=== PATIENT | male | born 1995 | race Caucasian/White ===

== ENCOUNTER → 2021-04-03 | Outpatient (CLI) | payer OTHER ==
--- NOTE | 2021-04-03 09:37 | US ---
EXAMINATION TYPE: US abdomen limited DATE OF EXAM: 04/03/2021 COMPARISON: NONE CLINICAL HISTORY: ICD-10: R10.12: Left upper quadrant pain. LUQ pain x 2 years per patient. EXAM MEASUREMENTS: Spleen: 11.1 cm Left Kidney: 11.7 x 6.2 x 6.1 cm Limited exam due to patient body habitus. 1. Spleen: Appears slightly heterogeneous. 2. Left Kidney: Hyperechoic area seen: 0.6 x 0.6 x 0.3 cm - possible vessel. Nonobstructing renal s tone can be considered. No hydronephrosis or masses seen at this time. IMPRESSION: 1. Limited left upper quadrant ultrasound unremarkable. Nonobstructing renal stone or vessel may be p resent.
== END | disposition home or self-care (01) ==
LOC: RADUSWWP 07:02
PROVIDERS: ATTEND Internal Medicine Gastroenterology
DX: N20.0 Calculus of kidney (principal)
CPT/HCPCS: 76705

== ENCOUNTER 2021-09-24 10:48 | Emergency (ER) | payer OTHER ==
[2021-09-24 11:07] VITALS: RESP 18
[2021-09-24] MEDS ORDERED: PANTOPRAZOLE 40 MG/10 ML VIAL IVP STA (11:14)
[2021-09-24] MEDS ORDERED: ONDANSETRON 4 MG/2 ML VIAL IVP STA (11:14)
[2021-09-24] MEDS ORDERED: SODIUM CHLORIDE 0.9% 1,000 ML IV STA (11:14)
--- NOTE | 2021-09-24 11:17 | ED ---
General Adult HPI - General Chief complaint: Abdominal Pain Stated complaint: nausea, vomiting Time Seen by Provider: 09/24/21 11:02 Source: patient, EMS, RN notes reviewed Mode of arrival: EMS Limitations: no limitations - History of Present Illness Initial comments: Patient is a pleasant 18-year-old male presenting to the emergency department with anxiety and vomiting. Patient was taken off his Klonopin 2 weeks ago. Patient has started drinking heavily since that time. Patient has had some vomiting. Patient has some epigastric discomfort. Patient has anxiety. patient denies any alcohol today. - Related Data Home Medications Medication Instructions Recorded Confirmed Atorvastatin [Lipitor] 10 mg PO DAILY 09/24/21 09/24/21 lisinopriL [Zestril] 5 mg PO DAILY 09/24/21 09/24/21 Allergies Allergy/AdvReac Type Severity Reaction Status Date / Time No Known Allergies Allergy Verified 09/24/21 11:36 Review of Systems ROS Statement: Those systems with pertinent positive or pertinent negative responses have been documented in the HPI. ROS Other: All systems not noted in ROS Statement are negative. Constitutional: Denies: fever Eyes: Denies: eye pain ENT: Denies: ear pain Respiratory: Denies: cough Cardiovascular: Denies: chest pain Endocrine: Reports: fatigue Gastrointestinal: Reports: as per HPI Genitourinary: Denies: dysuria Musculoskeletal: Denies: back pain Skin: Denies: rash Neurological: Denies: weakness Psychiatric: Reports: anxiety Past Medical History Past Medical History: Hyperlipidemia, Hypertension, Liver Disease History of Any Multi-Drug Resistant Organisms: None Reported Past Surgical History: No Surgical Hx Reported Past Psychological History: No Psychological Hx Reported Smoking Status: Current every day smoker Past Alcohol Use History: Daily Past Drug Use History: Marijuana General Exam Limitations: no limitations General appearance: alert, other (Odor of ketones on the breath) Head exam: Present: normocephalic Eye exam: Present: normal appearance Neck exam: Present: normal inspection Respiratory exam: Present: normal lung sounds bilaterally Cardiovascular Exam: Present: regular rate, normal rhythm Expanded Peripheral pulses: 2+: Posterior Tibialis (R), Posterior Tibialis (L) GI/Abdominal exam: Present: soft, tenderness (Minimal epigastric tenderness) Extremities exam: Present: normal inspection Neurological exam: Present: alert Psychiatric exam: Present: anxious Skin exam: Present: normal color Course Vital Signs 09/24/21 09/24/21 09/24/21 10:52 12:02 13:57 Temperature 98.0 F Pulse Rate 93 86 95 Respiratory 18 18 18 Rate Blood Pressure 155/103 105/80 142/102 O2 Sat by Pulse 97 97 96 Oximetry Medical Decision Making - Medical Decision Making Patient reevaluated and feeling much better following Ativan and GI cocktail. Patient and family updated on results and need for follow-up. - Lab Data Result diagrams: 09/24/21 12:01 09/24/21 12:01 Lab Results 09/24/21 09/24/21 Range/Units 12:01 12:01 WBC 5.1 (3.8-10.6) k/uL RBC 5.00 (4.30-5.90) m/uL Hgb 15.8 (13.0-17.5) gm/dL Hct 46.5 (39.0-53.0) % MCV 93.0 (80.0-100.0) fL MCH 31.6 (25.0-35.0) pg MCHC 33.9 (31.0-37.0) g/dL RDW 13.3 (11.5-15.5) % Plt Count 318 (150-450) k/uL MPV 6.6 Neutrophils % 69 % Lymphocytes % 21 % Monocytes % 6 % Eosinophils % 1 % Basophils % 1 % Neutrophils # 3.5 (1.3-7.7) k/uL Lymphocytes # 1.1 (1.0-4.8) k/uL Monocytes # 0.3 (0-1.0) k/uL Eosinophils # 0.1 (0-0.7) k/uL Basophils # 0.0 (0-0.2) k/uL Sodium 137 (137-145) mmol/L Potassium 4.2 (3.5-5.1) mmol/L Chloride 99 (98-107) mmol/L Carbon Dioxide 24 (22-30) mmol/L Anion Gap 14 mmol/L BUN 21 H (9-20) mg/dL Creatinine 0.84 (0.66-1.25) mg/dL Est GFR (CKD-EPI)AfAm >90 (>60 ml/min/1.73 sqM) Est GFR (CKD-EPI)NonAf >90 (>60 ml/min/1.73 sqM) Glucose 130 H (74-99) mg/dL Calcium 8.4 (8.4-10.2) mg/dL Total Bilirubin 0.8 (0.2-1.3) mg/dL AST 52 (17-59) U/L ALT 73 H (4-49) U/L Alkaline Phosphatase 56 (38-126) U/L Total Protein 7.3 (6.3-8.2) g/dL Albumin 4.3 (3.5-5.0) g/dL Amylase 50 (30-110) U/L Lipase 43 (23-300) U/L Serum Alcohol 96 mg/dL - Radiology Data Radiology results: report reviewed (Computed tomography scan abdomen pelvis shows no definite acute abnormality. Enlarged liver.), image reviewed (KB shows prominent small bowel loops that could represent ileus or enteritis. phebolith, possible renal calculi.) Disposition Clinical Impression: Abdominal pain, Alcohol intoxication, Anxiety Disposition: HOME SELF-CARE Condition: Stable Instructions (If sedation given, give patient instructions): Abdominal Pain (ED), Abuse of Alcohol (DC), Generalized Anxiety Disorder (ED) Additional Instructions: Please follow-up with primary care physician in the next day or 2 for recheck. Additional numbers have been provided. Return for increased pain, vomiting, fevers, worsening or changing symptoms or other concerns. Prescription has been sent to pharmacy. Is patient prescribed a controlled substance at d/c from ED?: No Referrals: Claudette Amaro MD [Primary Care Provider] - 1-2 days Pastor Wall MD [STAFF PHYSICIAN] - 1-2 days Brenton Stone MD [REFERRING] - 1-2 days Time of Disposition: 14:23
[2021-09-24 12:12] LABS: Basophils % (A) 1 %; Eosinophils # (A) 0.1 k/uL (0-0.7); Eosinophils % (A) 1 %; HCT 46.5 % (39.0-53.0); HGB 15.8 gm/dL (13.0-17.5); Lymphocytes # (A) 1.1 k/uL (1.0-4.8); Lymphocytes % (A) 21 %; MCH 31.6 pg (25.0-35.0); MCHC 33.9 g/dL (31.0-37.0); Mean Platelet Volume 6.6; Monocytes # (A) 0.3 k/uL (0-1.0); Monocytes % (A) 6 %; Neutrophils # (A) 3.5 k/uL (1.3-7.7); Neutrophils % (A) 69 %; Platelet Count 318 k/uL (150-450); RDW 13.3 % (11.5-15.5); WBC 5.1 k/uL (3.8-10.6)
[2021-09-24 12:26] LABS: ALT 73 U/L (4-49); African American GFR (CKD) >90 (>60 ml/min/1.73 sqM); Albumin 4.3 g/dL (3.5-5.0); Amylase 50 U/L (30-110); Anion Gap 14 mmol/L; Blood Urea Nitrogen 21 mg/dL (9-20); Calcium 8.4 mg/dL (8.4-10.2); Carbon Dioxide 24 mmol/L (22-30); Chloride 99 mmol/L (98-107); Glucose 130 mg/dL (74-99); Lipase 43 U/L (23-300); Non-African American GFR(CKD) >90 (>60 ml/min/1.73 sqM); Sodium 137 mmol/L (137-145); Total Bilirubin 0.8 mg/dL (0.2-1.3); Total Protein 7.3 g/dL (6.3-8.2)
[2021-09-24 12:27] LABS: AST 52 U/L (17-59); Alcohol 96 mg/dL; Alkaline Phosphatase 56 U/L (38-126); Potassium 4.2 mmol/L (3.5-5.1)
--- NOTE | 2021-09-24 12:39 | XR ---
EXAMINATION TYPE: XR KUB DATE OF EXAM: 09/24/2021 Comparison: None Clinical History: 26-year-old male nausea and abdominal pain Findings: Lung bases are clear. No evidence for free intraperitoneal air. Prominent small bowel loops in the left side of the abdomen, some of which are borderline distended u p to 3.1 cm. No air-fluid levels. Only minimal scattered colonic air. No significant stool burden see n. Rounded calcifications in the pelvis suggesting phleboliths. 5 mm subtle density right mid abdomen. Impression: 1. Some prominent small bowel loops along the left side of the abdomen measuring up to 3.1 cm colloid represent ileus or enteritis. No air-fluid levels to suggest bowel obstruction. No free air. No sign ificant stool burden. 2. Rounded calcifications in the pelvis likely phleboliths. Possible 5 mm right renal calculus.
[2021-09-24] MEDS ORDERED: LORazepam 2 MG/ML INJ IV STA (13:01)
[2021-09-24] MEDS ORDERED: MAG HYDROX/AL HYDROX/SIMETH 30 ML, HYOSCYAMINE ELIXIR 10 ML, LIDOCAINE VISCOUS 2% 10 ML PO STA ×3 (13:01)
--- NOTE | 2021-09-24 14:01 | CT ---
EXAMINATION TYPE: CT abdomen pelvis w con DATE OF EXAM: 09/24/2021 COMPARISON: X-ray dated 09/24/2021 HISTORY: Epigastric pain CT DLP: 3240 mGycm Automated exposure control for dose reduction was used. TECHNIQUE: Helical acquisition of images was performed from the lung bases through the pelvis. CONTRAST: Performed without Oral Contrast and with IV Contrast, patient injected with 100 mL of Isovue 300. FINDINGS: LUNG BASES: No significant abnormality is appreciated. LIVER/GB: Enlarged liver measuring 22.3 cm with questionable hepatic steatosis. Simple cyst is seen a t the inferior aspect of the right hepatic lobe measuring up to 13 mm. No other definite hepatic foca l lesion identified. Unremarkable gallbladder. No intra or extra hepatic biliary tree dilatation. PANCREAS: No significant abnormality is seen. SPLEEN: No significant abnormality is seen. ADRENALS: No significant abnormality is seen. KIDNEYS: No significant abnormality is seen. FREE AIR: No free air is visualized. RETROPERITONEAL ADENOPATHY: None visualized REPRODUCTIVE ORGANS: No significant abnormality is seen URINARY BLADDER: No significant abnormality is seen. PELVIC ADENOPATHY: None visualized. OSSEOUS STRUCTURES: Mild degenerative changes of the lower thoracic spine. BOWEL: Unremarkable nondistended stomach, duodenum and small bowel. Complete collapse of the colon, suboptimally assessed. Fat infiltration of the right hemicolonic wall which may suggest chronic colit is. No evidence of acute appendicitis. OTHER: Left fat-containing inguinal hernia. Unremarkable abdominal aorta and IVC. No sizable ascites. IMPRESSION: No definite acute abnormality or suspicious lesion seen in the abdomen or the pelvis. Enlarged liver with possible hepatic steatosis as described above. Please correlate with liver function tests. Other incidental findings as described above.
[2021-09-24 14:40] VITALS: BP 131/95; PULSE 90; TEMP 98.1
== END 2021-09-24 14:37 | disposition home or self-care (01) ==
LOC: EC 10:48
DX: F10.129 Alcohol abuse with intoxication, unspecified (principal); F41.9 Anxiety disorder, unspecified; I10 Essential (primary) hypertension; F17.200 Nicotine dependence, unspecified, uncomplicated
CPT/HCPCS: 36415; 80053; 82150; 83690; 85025; 74018; 74177; 99284; 96374; 96375; 96361; G0480; J2060; J2405; C9113; Q9967; 80320

== ENCOUNTER 2022-03-18 07:27 | Day surgery (SDC) | payer OTHER ==
[2022-03-17 08:44] VITALS: BMI 45.9
[~2022-03-18 07:27] MED LIST: LACTATED RINGERS 1,000 ML IV SCH
[2022-03-18] MEDS ORDERED: MIDAZOLAM 2 MG/2 ML VIAL IV ONE (08:40)
[2022-03-18 08:42] VITALS: TEMP 97.9
[2022-03-18] MEDS ORDERED: PROPOFOL 10 MG/ML 20 ML VIAL IV ONE (08:57)
[2022-03-18] MEDS ORDERED: LIDOCAINE 2% INJ 20 MG/ML (2 ML VIAL) ONE (08:57)
--- NOTE | 2022-03-18 09:09 | P.PCN ---
Date of Procedure: 03/18/22 Procedure(s) Performed: BRIEF HISTORY: Patient is a 26-year-old, pleasant, white male scheduled for an upper endoscopy as a part of evaluation of abdominal discomfort abdominal bloating for the last several months duration.. He was treated with Prilosec as well as Protonix and will help PROCEDURE PERFORMED: Esophagogastroduodenoscopy with biopsy. PREOPERATIVE DIAGNOSIS: Epigastric pain and abdominal bloating of several months duration. IV sedation per anesthesia. PROCEDURE: After informed consent was obtained, the patient was brought into the endoscopy unit. IV sedation was administered by Anesthesia under continuous monitoring. Initially the Olympus GIF-140 video endoscope was inserted into the mouth. Esophagus intubated without any difficulty. It was gradually advanced into the stomach and duodenum and carefully examined. The bulb and the second part of the duodenum appeared normal. Biopsies were done from the duodenum to rule out celiac disease. The scope at this time was withdrawn to the stomach, adequately insufflated with air, and upon careful examination, mucosa of the antrum, mild gastritis and biopsies were done from this area. The body, cardia and the fundus appeared normal. The scope was then withdrawn into the esophagus. The GE junction was located at 42 cm from the incisors. The esophagus appeared normal. There were no erosions or ulcerations seen, biopsies were done from the distal esophagus and the patient tolerated the procedure well. IMPRESSION: 1. Mild antral gastritis. 2. No evidence of esophagitis or peptic ulcer disease. RECOMMENDATIONS: The findings of this examination were discussed with the patient as well as his family. He was advised to follow with the biopsy results and recommend diet modification antireflux measures..
[2022-03-18 09:18] VITALS: RESP 18
[2022-03-18 09:39] VITALS: BP 138/89; PULSE 80
== END 2022-03-18 09:34 | disposition home or self-care (01) ==
LOC: ORWHC2ENDO 07:27
PROVIDERS: ATTEND Internal Medicine Gastroenterology
DX: K29.70 Gastritis, unspecified, without bleeding (principal); G47.33 Obstructive sleep apnea (adult) (pediatric); F32.A Depression, unspecified; E66.01 Morbid (severe) obesity due to excess calories; Z68.41 Body mass index [BMI] 40.0-44.9, adult; Z79.899 Other long term (current) drug therapy
CPT/HCPCS: 43239; J2250; J2704; J2001; 88305; 88342